=== PATIENT | male | born 1990 | race Caucasian/White ===

== ENCOUNTER 2016-11-15 20:46 | Emergency (ER) | payer SELFPAY | END 2016-11-15 23:57 | disposition home or self-care (01) | LOC: ER 20:46 | DX: J09.X2 Influenza due to identified novel influenza A virus with other respiratory manifestations (principal); I10 Essential (primary) hypertension | CPT/HCPCS: 87502 ==

== ENCOUNTER 2017-01-18 13:24 | Emergency (ER) | payer OTHER | END 2017-01-18 14:13 | disposition home or self-care (01) | LOC: ER 13:24 | DX: S80.851A Superficial foreign body, right lower leg, initial encounter (principal); I10 Essential (primary) hypertension; Z23 Encounter for immunization; Z79.899 Other long term (current) drug therapy; W45.8XXA Other foreign body or object entering through skin, initial encounter | CPT/HCPCS: 90471 ==